=== PATIENT | female | born 1945 | race Caucasian/White ===

== ENCOUNTER 2019-04-15 01:50 | Emergency (ER) | payer MEDICARE ==
--- NOTE | 2019-04-15 01:55 | ER Report ---
History and Physical Time Seen By MD: 01:52 HPI/ROS CHIEF COMPLAINT: left lower abdominal pain, low back pain HISTORY OF PRESENT ILLNESS: This is a 73 year old female. She is visiting from [place]. She started having lower abdominal and low back pain about 2200 hours. Feeling of urinary frequency, but not able to urinate much, no dysuria. Last BM a couple of days ago, feeling of having to go but cannot. Nausea. Pain severe. Nausea but no vomiting. No fevers or chills. No shortness of breath. Allergies: Coded Allergies: codeine (Verified Adverse Reaction, Unknown, "UNPLEASANT REACTION", 04/15/19) Home Meds Active Scripts Hydrocodone Bit/Acetaminophen (HYDROCODON-ACETAMINOPHEN 5-325) 1 Each Tablet, 1 EACH PO Q4H PRN for PAIN, #12 TAB 0 Refills Prov:JOHN CARVER MD 04/15/19 Tamsulosin Hcl (FLOMAX) 0.4 Mg Cap.er.24h, 0.4 MG PO QDAY, #14 CAP 0 Refills Prov:JOHN CARVER MD 04/15/19 Ondansetron 4 Mg Odt (ONDANSETRON 4 MG ODT) 4 Mg Tab.rapdis, 4 MG PO Q6H PRN for NAUSEA/VOMITING, #20 TAB 0 Refills Prov:JOHN CARVER MD 04/15/19 Ketorolac Tromethamine (KETOROLAC TROMETHAMINE) 10 Mg Tab, 10 MG PO Q6H PRN for PAIN, #12 TAB 0 Refills Prov:JOHN CARVER MD 04/15/19 Reported Medications Multivitamin (MULTIVITAMINS) 1 Each Capsule, 1 EACH PO QDAY, CAPSULE 04/15/19 Reviewed Nurses Notes: Yes Constitutional Vital Sign - Last 24 Hours 04/15/19 04/15/19 04/15/19 04/15/19 01:54 01:57 02:00 02:05 Temp 97.7 Pulse 70 73 Resp 18 B/P (MAP) 139/72 (94) 139/72 142/79 (100) Pulse Ox 92 89 O2 Delivery Room Air 04/15/19 04/15/19 04/15/19 04/15/19 02:20 02:30 02:35 02:40 Pulse 70 70 70 B/P (MAP) 146/73 (97) Pulse Ox 88 94 04/15/19 04/15/19 04/15/19 04/15/19 03:21 03:25 03:30 03:40 Pulse 73 74 B/P (MAP) 152/80 (104) 151/83 (105) Pulse Ox 93 94 04/15/19 04/15/19 04/15/19 04/15/19 03:45 04:00 04:14 04:15 Pulse 74 B/P (MAP) 149/86 (107) Pulse Ox 95 96 O2 Flow Rate 2.0 04/15/19 04/15/19 04/15/19 04/15/19 04:20 04:30 04:35 05:00 Pulse 73 70 B/P (MAP) 142/75 (97) 104/54 (71) Pulse Ox 97 96 04/15/19 04/15/19 04/15/19 04/15/19 05:05 05:20 05:30 05:35 Pulse 63 61 60 B/P (MAP) 108/64 (79) Pulse Ox 95 97 95 04/15/19 04/15/19 05:50 06:01 B/P (MAP) 113/63 (80) Pulse Ox 95 Intake and Output 04/14/19 04/14/19 04/15/19 15:02 23:02 07:02 Intake Total 2000 ml Balance 2000 ml Physical Exam General Appearance: The patient is alert. Acute distress due to pain. Non- toxic in appearance. Eyes: Pupils are equal, round. No pallor, injection or icterus. ENT: Mucous membranes are moist. Normal oral mucosa. Posterior oropharynx is normal. Neck: Supple and non tender. Respiratory: Lungs are clear to auscultation. Cardiovascular: Regular rate and rhythm. No murmurs, gallops or rubs. Normal capillary refill. Gastrointestinal: Abdomen is soft, tender in lower left abdomen, and in low back. No CVA tenderness. Nondistended. Normal active bowel sounds. Neurological: Alert and oriented x3. Skin: Warm and dry. No rashes. Musculoskeletal: Extremities are nontender. No tenderness in palpation of the spine. DIFFERENTIAL DIAGNOSIS: After history and physical exam, differential diagnosis was considered for abdominal and low back pain including but not limited to colitis, diverticulitis, kidney stones, urinary tract infection. Medical Decision Making Data Points Result Diagram: 04/15/19 0205 04/15/19 0205 Laboratory Hematology Test 04/15/19 02:05 White Blood Count 13.0 k/uL (4.5-11.0) H Red Blood Count 4.78 M/uL (4.17-5.56) Hemoglobin 14.3 g/dL (12.0-16.0) Hematocrit 42.3 % (34.0-47.0) Mean Corpuscular Volume 88.4 fL (80.0-96.0) Mean Corpuscular Hemoglobin 29.9 pg (26.0-33.0) Mean Corpuscular Hemoglobin Concent 33.8 g/dL (32.0-36.0) Red Cell Distribution Width 13.4 % (11.5-14.5) Platelet Count 271 K/uL (150-450) Mean Platelet Volume 8.5 fL (7.2-11.1) Neutrophils (%) (Auto) 84.6 % (39.4-72.5) H Lymphocytes (%) (Auto) 10.4 % (17.6-49.6) L Monocytes (%) (Auto) 4.3 % (4.1-12.4) Eosinophils (%) (Auto) 0.3 % (0.4-6.7) L Basophils (%) (Auto) 0.4 % (0.3-1.4) Nucleated RBC Relative Count (auto) 0.0 /100WBC Neutrophils # (Auto) 11.0 K/uL (2.0-7.4) H Lymphocytes # (Auto) 1.3 K/uL (1.3-3.6) Monocytes # (Auto) 0.6 K/uL (0.3-1.0) Eosinophils # (Auto) 0.0 K/uL (0.0-0.5) Basophils # (Auto) 0.1 K/uL (0.0-0.1) Nucleated RBC Absolute Count (auto) 0.00 K/uL Chemistry Test 04/15/19 02:05 Sodium Level 137 mmol/L (137-145) Potassium Level 3.9 mmol/L (3.5-5.0) Chloride Level 103 mmol/L (98-107) Carbon Dioxide Level 24 mmol/L (22-31) Blood Urea Nitrogen 9 mg/dl (7-18) Creatinine 0.70 mg/dl (0.52-1.04) Glomerular Filtration Rate Calc > 60.0 Random Glucose 165 mg/dl (75-110) Calcium Level 10.1 mg/dl (8.4-10.2) Total Bilirubin 0.5 mg/dl (0.2-1.3) Aspartate Amino Transf (AST/SGOT) 29 U/L (0-35) Alanine Aminotransferase (ALT/SGPT) 30 U/L (0-56) Alkaline Phosphatase 101 U/L (0-126) Total Protein 7.6 g/dl (6.3-8.2) Albumin 4.4 g/dl (3.5-5.0) Amylase Level 56 U/L (0-110) Lipase 39 U/L (23-300) Urinalysis Test 04/15/19 02:26 Urine Color Yellow Urine Clarity Clear Urine pH 6.0 pH (4.8-9.5) Urine Specific Felda 1.013 Urine Protein Negative mg/dL (NEGATIVE) Urine Glucose (UA) Negative mg/dL (NEGATIVE) Urine Ketones 20 mg/dL (NEGATIVE) Urine Blood Moderate (NEGATIVE) Urine Nitrite Negative (NEGATIVE) Urine Bilirubin Negative (NEGATIVE) Urine Urobilinogen Negative mg/dL (0.2-1.9) Urine Leukocyte Esterase Negative (NEGATIVE) Urine RBC 19 /HPF (0-2/HPF) Urine WBC 1 /HPF (0-5/HPF) Urine Squamous Epithelial Cells Many /LPF (</=FEW) Urine Bacteria Negative /HPF (NONE-FEW) Urine Mucus None /HPF (NONE-FEW) EKG/Imaging Imaging CT ABDOMEN PELVIS W/ CON COMPARISONS: None. ADDITIONAL PERTINENT HISTORY: Left abdominal and low back pain. TECHNIQUE: Multiple axial images were obtained from the lung bases through the lesser trochanters before and after the IV administration of IV contrast. One of the following dose optimization techniques was utilized in the performance of this exam: Automated exposure control; adjustment of the mA and/or kV according to the patient's size; or use of an iterative reconstruction technique. Specific details can be referenced in the facility's radiology CT exam operati onal policy. CONTRAST: 75 ml of Isovue-370 FINDINGS: Lung bases: Minimal bibasilar regions of scarring. Free air and free fluid: None. Liver: Negative. Spleen: Peripherally calcified centrally low-attenuation lesion involving the inferior aspect of the spleen measuring 2.8 cm most consistent with a partially calcified cyst. Otherwise negative Kidneys, ureters and urinary bladder: Edematous changes with fluid surrounding the left kidney with a delayed nephrogram involving the left kidney with moderate hydroureteronephrosis to the level of the left ureterovesicular junction where there are findings of a 3 mm obstructing calculus. Small renal calculi involving the inferior and superior poles of the left kidney. Adrenal glands: Negative. Pancreas: Negative. Gallbladder: Negative. Bowel and mesentery: Sigmoid and descending colonic diverticulosis without evidence of diverticulitis. No bowel junction.. Pelvic contents: Patient status post hysterectomy. Lymph node assessment: Negative. Retroperitoneum: Negative. Abdominal vasculature: Atherosclerotic disease of the abdominal aorta and its major branches. Surrounding soft tissues: Negative. Osseous structures: Negative. IMPRESSION: 1. Findings of moderate left-sided hydroureteronephrosis related to a 3 mm obstructing calculus at the level of the left ureterovesicular junction. 2. 2 small nonobstructing renal calculi involving the left kidney. 3. Diverticulosis without evidence of diverticulitis. 4. No other acute intra-abdominal process. Report Dictated By: Yang Huang MD at 04/15/2019 3:30 AM ED Course/Re-evaluation Clinical Indication for ER IV: Hydration, IV Access ED Course Patient given morphine and Zofran to help with pain and nausea. This helped a little bit. Labs unremarkable other than some blood in the urine. CT scan was done and shows CT scan consistent with 3 mm nephrolithiasis at the left ureterovesicular junction. Patient having worsening pain and given Toradol and Dilaudid as well as some Phenergan for nausea. Patient feeling much better. Decision to Disposition Date: Apr 15, 2019 Decision to Disposition Time: 05:37 Depart Departure Latest Vital Signs Vital Signs Date Time Temp Pulse Resp B/P (MAP) Pulse Ox O2 Delivery O2 Flow Rate FiO2 04/15/19 06:01 113/63 (80) 04/15/19 05:50 95 04/15/19 05:35 60 04/15/19 04:14 2.0 04/15/19 01:57 97.7 18 Room Air Impression: Primary Impression: Nephrolithiasis Condition: Improved Disposition: HOME OR SELF-CARE New Scripts Hydrocodone Bit/Acetaminophen (HYDROCODON-ACETAMINOPHEN 5-325) 1 Each Tablet 1 EACH PO Q4H PRN for PAIN, #12 TAB 0 Refills Prov: JOHN CARVER MD 04/15/19 Tamsulosin Hcl (FLOMAX) 0.4 Mg Cap.er.24h 0.4 MG PO QDAY, #14 CAP 0 Refills Prov: JOHN CARVER MD 04/15/19 Ondansetron 4 Mg Odt (ONDANSETRON 4 MG ODT) 4 Mg Tab.rapdis 4 MG PO Q6H PRN for NAUSEA/VOMITING, #20 TAB 0 Refills Prov: JOHN CARVER MD 04/15/19 Ketorolac Tromethamine (KETOROLAC TROMETHAMINE) 10 Mg Tab 10 MG PO Q6H PRN for PAIN, #12 TAB 0 Refills Prov: JOHN CARVER MD 04/15/19 Patient Instructions: Kidney Stones (ED) Additional Instructions: Rest and increase fluid intake. For pain you can use: Toradol 10mg, one every 6 hours as needed for pain. Lortab 5/325, take 1-2 every 4 hours as needed for pain. For Nausea: Zofran 4mg, one every 4-6 hours as needed for nausea. To help the stone to pass and to help decrease swelling and pain in the urinary system after the stone passes, we recommend using Flomax 0.4mg one daily for the next couple of weeks. JOHN CARVER MD Apr 15, 2019 01:55
[2019-04-15] MEDS ORDERED: MULT1CAP59 PO (02:03)
[2019-04-15] MEDS ORDERED: MORPHINE 2 MG/ML SYR IVP ONE (02:20)
[2019-04-15] MEDS ORDERED: NS(*) 0.9% 1000 ML BAG 1,000 ML IV ONE ×2 (02:20→03:30)
[2019-04-15] MEDS ORDERED: ONDANSETRON 4 MG/2 ML VIAL IVP ONE ×2 (02:20→03:00)
[2019-04-15] MEDS ORDERED: IOPAMIDOL 76% 100 ML INFUS BTL 100 ML ONE (02:33)
[2019-04-15 02:45] LABS: PLATELET COUNT, AUTOMATED 271 K/uL (150-450)
[2019-04-15] MEDS ORDERED: PROMETHAZINE 25 MG/ML 1 ML AMP IVP ONE (03:30)
[2019-04-15] MEDS ORDERED: TAMSULOSIN HCL 0.4 MG CAP PO ONE (03:30)
[2019-04-15] MEDS ORDERED: KETOROLAC 30 MG/ML VIAL IVP ONE (03:30)
--- NOTE | 2019-04-15 03:42 | RADIOLOGY IMAGING REPORT ---
FACILITY: [facility] PATIENT NAME: Berta Mercado : 1945 MR: [id number] V: [id number] EXAM DATE: ORDERING PHYSICIAN: JOHN CARVER TECHNOLOGIST: Location: [facility] Patient: Berta Mercado : 1945 Visit/Account:[id number] Date of Sevice: 04/15/2019 CT ABDOMEN PELVIS W/ CON COMPARISONS: None. ADDITIONAL PERTINENT HISTORY: Left abdominal and low back pain. TECHNIQUE: Multiple axial images were obtained from the lung bases through the lesser trochanters bef ore and after the IV administration of IV contrast. One of the following dose optimization technique s was utilized in the performance of this exam: Automated exposure control; adjustment of the mA and/ or kV according to the patient's size; or use of an iterative reconstruction technique. Specific de tails can be referenced in the facility's radiology CT exam operational policy. CONTRAST: 75 ml of Isovue-370 FINDINGS: Lung bases: Minimal bibasilar regions of scarring. Free air and free fluid: None. Liver: Negative. Spleen: Peripherally calcified centrally low-attenuation lesion involving the inferior aspect of the spleen measuring 2.8 cm most consistent with a partially calcified cyst. Otherwise negative Kidneys, ureters and urinary bladder: Edematous changes with fluid surrounding the left kidney with a delayed nephrogram involving the left kidney with moderate hydroureteronephrosis to the level of the left ureterovesicular junction where there are findings of a 3 mm obstructing calculus. Small renal calculi involving the inferior and superior poles of the left kidney. Adrenal glands: Negative. Pancreas: Negative. Gallbladder: Negative. Bowel and mesentery: Sigmoid and descending colonic diverticulosis without evidence of diverticulitis . No bowel junction.. Pelvic contents: Patient status post hysterectomy. Lymph node assessment: Negative. Retroperitoneum: Negative. Abdominal vasculature: Atherosclerotic disease of the abdominal aorta and its major branches. Surrounding soft tissues: Negative. Osseous structures: Negative. IMPRESSION: 1. Findings of moderate left-sided hydroureteronephrosis related to a 3 mm obstructing calculus at th e level of the left ureterovesicular junction. 2. 2 small nonobstructing renal calculi involving the left kidney. 3. Diverticulosis without evidence of diverticulitis. 4. No other acute intra-abdominal process. Report Dictated By: Yang Huang MD at 04/15/2019 3:30 AM Report E-Signed By: Yang Huang MD at 04/15/2019 3:36 AM [id number]
[2019-04-15] MEDS ORDERED: HYDROMORPHONE HCL 1 MG/ML SYRINGE IVP ONE (04:05)
[2019-04-15] MEDS ORDERED: LOR5/325 PO (05:43)
[2019-04-15] MEDS ORDERED: ONDA4TAB9 PO (05:43)
[2019-04-15] MEDS ORDERED: TAMS0.4C25 PO (05:43)
[2019-04-15] MEDS ORDERED: KET10 PO (05:43)
[2019-04-15] MEDS ORDERED: KETOROLAC TROM 10 MG TAB TH PO ONE (06:00)
[2019-04-15] MEDS ORDERED: ACET/HYDROC 5/325MG TH ER ONLY 2 TAB/BOTTLE PO ONE (06:00)
[2019-04-15] MEDS ORDERED: ONDANSETRON 4 MG ODT TH SL ONE (06:00)
[2019-04-15 06:01] VITALS: BP 113/63
== END 2019-04-15 06:11 | disposition home or self-care (01) ==
LOC: ER 02:11
DX: N13.2 Hydronephrosis with renal and ureteral calculous obstruction (principal)
CPT/HCPCS: 74177; 81001; 82150; 83690; 85025; 96361; 96374; 96375; 99284; A9270; J1170; J1885; J2270; J2405; J2550; J7030; Q0162; Q9967; 82040; 82247; 82310; 82374; 82435; 82565; 82947; 84075; 84132; 84155; 84295; 84450; 84460; 84520; S0119